=== PATIENT | female | born 1950 | race Caucasian/White ===

== ENCOUNTER → 2017-01-04 | Outpatient (CLI) | payer SELFPAY ==
--- NOTE | ~2017-01-04 | CR181 ---
[facility] A Service of [facility] RADIOLOGY TEXT RESULTS PATIENT: AWA EDMONDS LOCATION: [facility] : 52 UNIT #: [id number] AGE: [address]: Blayne Cervantes MD SEX: F ORDER DR: [id number] [place] [id number] O MR#: [id number] Acc #: [id number] NAME: AWA EDMONDS : 1950 SEX: F STUDY DATE/TIME: 01/04/2017 11:32 UNIT: [facility] ROOM: STUDY DESCRIPTION: CR Lumbar Spine 2 or 3 Views Attending Physician: Blayne Cervantes M.D. Referring Physician: Blayne Cervantes M.D. Ordering Physician: Blayne Cervantes M.D. Primary Care Physician: Blayne Cervantes M.D. MEDICAL IMAGING REPORT This report is preliminary unless electronic signature is present. EXAM Lumbar spine, 01/04/2017 at 11:32 INDICATION Low back pain after fall in 2014. No recent trauma. There is right lower extremity radiculopathy. FINDINGS 3 views of the lumbar spine were obtained. No comparison. Incidental note is made of atherosclerotic disease. There is 12 degrees of dextroscoliosis in the mid lumbar spine. No compression fractures are seen. There is degenerative disc disease with endplate osteophyte formation and disc space narrowing, most severe at L1-2. There is also some disc space narrowing at L4-5. IMPRESSION No compression fractures. There is multilevel degenerative disc disease, most severe at L1-2, and there is also dextroscoliosis. Dictated by... Aramis Jim Jr., M.D. THIS IS AN ELECTRONICALLY VERIFIED REPORT Aramis Jim Jr., M.D. at 01/05/2017 6:05 AM SALAZAR/seble TD: 01/05/2017 01:49 JOB #: [id number] MEDICAL IMAGING REPORT [facility] A Service of [facility] RADIOLOGY TEXT RESULTS PATIENT: AWA EDMONDS LOCATION: [facility] : 52 UNIT #: [id number] AGE: [address]: Blayne Cervantes MD SEX: F ORDER DR: Page 1 of 1
== END | disposition home or self-care (01) ==
LOC: SRAD 11:16
DX: M54.5 Low back pain (principal); M51.36 Other intervertebral disc degeneration, lumbar region; M41.9 Scoliosis, unspecified
CPT/HCPCS: 72100

== ENCOUNTER → 2017-03-15 | Outpatient (CLI) | payer MEDICARE ==
--- NOTE | ~2017-03-15 | CR63 ---
[facility] A Service of [facility] RADIOLOGY TEXT RESULTS PATIENT: AWA EDMONDS LOCATION: [facility] : 52 UNIT #: [id number] AGE: [address]: Blayne Cervantes MD SEX: F ORDER DR: [id number] [place] [id number] O MR#: [id number] Acc #: [id number] NAME: AWA EDMONDS : 1950 SEX: F STUDY DATE/TIME: 03/15/2017 12:55 UNIT: [facility] ROOM: STUDY DESCRIPTION: CR Chest 2 View Attending Physician: Blayne Cervantes M.D. Referring Physician: Blayne Cervantes M.D. Ordering Physician: Blayne Cervantes M.D. Primary Care Physician: Blayne Cervantes M.D. MEDICAL IMAGING REPORT This report is preliminary unless electronic signature is present. EXAM PA and lateral chest INDICATIONS Shortness of breath with exertion for 1 month. COMPARISON STUDIES Compared with 11/05/2014 FINDINGS There is a mildly increased interstitial pattern. No airspace consolidation. Heart size normal. Atherosclerotic calcification of the aorta. Degenerative changes thoracic spine. IMPRESSION Mildly increased interstitial pattern compared with the previous study. This may represent interstitial edema, some mild fibrotic change, or infectious/inflammatory process. Correlate clinically. Dictated by... Franklin Mtz M.D. THIS IS AN ELECTRONICALLY VERIFIED REPORT Franklin Mtz M.D. at 03/16/2017 10:05 AM [place] TD: 03/15/2017 17:05 JOB #: [id number] MEDICAL IMAGING REPORT Page 1 of 1
== END | disposition home or self-care (01) ==
LOC: SRAD 12:47
DX: R06.02 Shortness of breath (principal)
CPT/HCPCS: 71020